=== PATIENT | male | born 1995 | race Caucasian/White ===

== ENCOUNTER 2019-03-15 09:08 | Day surgery (SDC) | payer BC, OTHER ==
[~2019-03-15] VITALS: Ht 177.8 cm; Wt 117.9 kg
[~2019-03-15 09:08] MED LIST: ALBU90OI INH; ALBU90OI61 INH; CODACEE120 PO; HYOS.125 SL; IBUP600 PO; LANS30EC PO; ONDA4 PO; ONDA4ODT MM; Percocet 5-3251 EACH PO; Prednisone20 MG PO
== END 2019-03-15 11:12 | disposition home or self-care (01) ==
LOC: ORSCSDS 09:08
PROVIDERS: Internal Medicine Gastroenterology
PROC: 0DB58ZX Excision of Esophagus, Via Natural or Artificial Opening Endoscopic, Diagnostic (ICD-10-PCS; principal; 2019-03-15 10:30)
PROC: 0DB98ZX Excision of Duodenum, Via Natural or Artificial Opening Endoscopic, Diagnostic (ICD-10-PCS; principal; 2019-03-15 10:30)
PROC: 0DB68ZX Excision of Stomach, Via Natural or Artificial Opening Endoscopic, Diagnostic (ICD-10-PCS; principal; 2019-03-15 10:30)
DX: R11.2 Nausea with vomiting, unspecified (principal); R13.10 Dysphagia, unspecified; K21.0 Gastro-esophageal reflux disease with esophagitis; K29.70 Gastritis, unspecified, without bleeding; J45.909 Unspecified asthma, uncomplicated; Z79.899 Other long term (current) drug therapy
CPT/HCPCS: 88305; 88342; J2250; J2704; J7120

== ENCOUNTER 2019-05-15 06:59 | Day surgery (SDC) | payer BC ==
[~2019-05-15] VITALS: Ht 177.8 cm; Wt 117.2 kg
== END 2019-05-15 09:40 | disposition home or self-care (01) ==
LOC: ORSCSDS 06:59
PROVIDERS: Internal Medicine Gastroenterology
PROC: 0DB58ZX Excision of Esophagus, Via Natural or Artificial Opening Endoscopic, Diagnostic (ICD-10-PCS; principal; 2019-05-15 08:30)
DX: Z87.19 Personal history of other diseases of the digestive system (principal); K21.0 Gastro-esophageal reflux disease with esophagitis; Z87.891 Personal history of nicotine dependence; Z79.899 Other long term (current) drug therapy
CPT/HCPCS: 88305; J2250; J2704; J7120

== ENCOUNTER 2023-02-24 12:28 | Emergency (ER) | payer BC ==
[~2023-02-24] VITALS: Ht 180.3 cm; Wt 111.1 kg
[2023-02-24 12:44] VITALS: BP 119/88
== END 2023-02-24 15:57 | disposition home or self-care (01) ==
LOC: ER 12:28
DX: S63.602A Unspecified sprain of left thumb, initial encounter (principal); F17.220 Nicotine dependence, chewing tobacco, uncomplicated; X50.1XXA Overexertion from prolonged static or awkward postures, initial encounter; Z79.899 Other long term (current) drug therapy
CPT/HCPCS: 29125; 73130; 99283-25

== ENCOUNTER 2024-09-20 07:22 | Day surgery (SDC) | payer BC ==
[~2024-09-20] VITALS: Ht 175.3 cm; Wt 120.6 kg
[2024-09-20] VITALS (9 sets, daily range): BP systolic 129–143; BP diastolic 74–87
[2024-09-20] MEDS ORDERED: Lactated Ringer's 1,000 ML IV SCH (07:35)
[2024-09-20] MEDS ORDERED: CeFAZolin Sodium 3,000 MG in NS 100 ML IV SCH (07:45)
[2024-09-20] MEDS ORDERED: Midazolam HCl 1MG / ML 2ML Vial ONE (09:07)
[2024-09-20] MEDS ORDERED: Bupivacaine 0.5% HCl 5 MG/ML 30MLVIAL ONE (09:09)
[2024-09-20] MEDS ORDERED: FentaNYL Citrate 50 MCG/ML 2 ML Injection ONE (09:32)
[2024-09-20] MEDS ORDERED: propofoL 20 ML IV ONE (09:32)
[2024-09-20] MEDS ORDERED: Ondansetron HCl 2 MG / ML 2ML Vial ONE (09:37)
[2024-09-20] MEDS ORDERED: Dexamethasone Sod Phos 10 MG/ML 1ML VIAL ONE (09:37)
[2024-09-20] MEDS ORDERED: Rocuronium Bromide 10 MG/ML 5ML Injection IV ONE (09:38)
[2024-09-20] MEDS ORDERED: Ketorolac Tromethamine 30mg Vial ONE (09:38)
[2024-09-20] MEDS ORDERED: FentaNYL Citrate 50 MCG/ML 2 ML Injection IV PRN ×2 (09:45→09:50)
[2024-09-20] MEDS ORDERED: Morphine Sulfate 4 MG/1 ML Injection IV PRN (09:45)
[2024-09-20] MEDS ORDERED: HYDROmorphone HCl/Pf 1MG SYR IV PRN (09:45)
[2024-09-20] MEDS ORDERED: Ondansetron HCl 2 MG / ML 2ML Vial IV PRN (09:50)
[2024-09-20] MEDS ORDERED: Phenylephrine HCl 100 MCG/ML-NS 10MLSYR (1MG/10ML) ONE (10:14)
[2024-09-20] MEDS ORDERED: Sugammadex Sodium 200 MG/2ML SDV (100 MG/ML) ONE (10:48)
[2024-09-20] MEDS ORDERED: HYDROcodone 5-APAP 325 TAB PO PRN (12:00)
--- NOTE | 2024-09-20 12:25 | NUR ---
Discharge instructions reviewed with patient. Patient verbalizes understanding. Copy given to patient to take home. Dressings c/d/i. Prescription placed in discharge folder. Patient States Post-Procedure ride home has been arranged. Discharged via wheelchair to private car for ride home.
== END 2024-09-20 12:20 | disposition home or self-care (01) ==
LOC: ORSCMMR 07:22 → ORD 09:00 → ORSCMMR 12:20
PROVIDERS: Surgery
PROC: 0FT44ZZ Resection of Gallbladder, Percutaneous Endoscopic Approach (ICD-10-PCS; principal; 2024-09-20 09:00)
DX: K80.10 Calculus of gallbladder with chronic cholecystitis without obstruction (principal)
CPT/HCPCS: 88304; A9270; J0690; J1100; J1885; J2250; J2371; J2405; J2704; J3010; J7120